=== PATIENT | male | born 1960 | race Caucasian/White ===

== ENCOUNTER 2019-09-26 14:15 | Emergency (ER) | payer OTHER, SELFPAY ==
[2019-09-26 14:50] VITALS: BP 131/84; PULSE 62; RESP 22; TEMP 36.6; O2SAT 98; BMI 27.1
--- NOTE | 2019-09-26 16:00 | ED.NAVMDI ---
HPI - Nausea/Vomiting/Diarrhea <KIMBERLY Hartman - Last Filed: 09/26/19 21:17> General Chief complaint: Nausea/Vomiting/Diarrhea Stated complaint: N/V/D Time Seen by Provider: 09/26/19 15:09 Source: patient Mode of arrival: Ambulatory Limitations: no limitations History of Present Illness HPI Narrative: 58yo male with history of seizures which are managed with Keppra (no seizures since 2004) presents to the emergency department complaining of nausea, vomiting, and diarrhea for the past 5 days. He states he was on a cruise the [facility] when he developed the symptoms. He states he last vomited last night around 5:00 p.m. and has not vomited since. However, he continues to have diarrhea and worsening abdominal cramping. Patient denies eating any other foods other than will was given to [place] on the cruise ship. He denies any blood in his stool, chest pain, shortness of breath, high fevers, dizziness, vertigo, cough, nasal congestion, or other concerns. His has been with him but has not been sick. Patient denies any abdominal surgeries. Patient states he was given a anti spasmodic and loperamide to help with symptoms, he states these have not helped. Patient states he was able to keep his Keppra down. Related Data Previous Rx's Medication Instructions Recorded ondansetron 4 mg PO Q6-8H PRN #20 tab 09/26/19 Allergies Allergy/AdvReac Type Severity Reaction Status Date / Time No Known Drug Allergies Allergy Verified 09/26/19 14:50 Review of Systems <KIMBERLY Hartman - Last Filed: 09/26/19 21:17> Review of Systems Narrative: REVIEW OF SYSTEMS: GENERAL: Denies fever, chills, malaise, or wt. loss. HENT: No head trauma, sore throat, or dysphagia. EYES: No loss of vision, double vision, eye pain, or irritation. CARDIOVASCULAR: No chest pain, palpitations, or orthopnea. RESPIRATORY: No shortness of breath or cough. GASTROINTESTINAL: Complains of diffuse abdominal cramping, see HPI. GENITOURINARY: No flank pain, urinary incontinence, or dysuria. MUSCULOSKELETAL: No pain, weakness, or trauma. INTEGUMENTARY: No rash, lesions, or pruritus. NEURO: No numbness, tingling, memory loss, confusion, or headaches. PSYCH: No behavior or mood changes. Patient History <KIMBERLY Hartman - Last Filed: 09/26/19 21:17> Medical History Seizures (Acute) Social History Smoking Status: Never smoker Smoking Status: Never smoker alcohol intake frequency: 0-2 drinks per day Substance Use Type: does not use Exam <KIMBERLY Hartman - Last Filed: 09/26/19 21:17> Initial Vital Signs Initial Vital Signs: Vital Signs Temperature 97.9 F 09/26/19 14:50 Pulse Rate 62 09/26/19 14:50 Respiratory Rate 22 09/26/19 14:50 Blood Pressure 131/84 09/26/19 14:50 Pulse Oximetry 98 09/26/19 14:50 PHYSICAL EXAMINATION: GENERAL: Well groomed, alert, and cooperative. Answers questions promptly and appropriately. Vital signs noted. HENT: Normocephalic, atraumatic. Hearing intact. Oral mucosa is pink and moist. EYES: Conjunctiva pink, sclera white, no periorbital swelling. CARDIOVASCULAR: S1 and S2 sounds normal. Regular rate and rhythm, no murmurs, clicks, or bruits. No pedal edema. RESPIRATORY: Normal respiratory rate, trachea midline, airway patent. No stridor, nasal flaring or accessory muscle use. Lungs are clear in all p[place] without wheeze, rhonchi, or crackles. GASTROINTESTINAL: Bowel sounds normoactive. Abdomen is soft with diffuse tenderness to all quadrants, no focal tenderness, tenderness completely resolved after administration of Zofran and fluids. No rebound tenderness.. No organomegaly, no palpable masses. GENITALURINARY: No flank tenderness. MUSCULOSKELETAL: Normal gait and coordination. Equal tone and mass bilaterally. EXTREMITIES: CMS intact. SKIN: Warm, dry, soft, appropriate color for ethnicity. No lesions, rashes, or wounds to visualized areas. NEURO: Alert and Oriented X 3. Good coordination. No ataxia, or sensory deficits, or cognitive issues. PSYCH: Appropriate affect and mood. <Holly Durán MD - Last Filed: 10/10/19 18:37> Initial Vital Signs Initial Vital Signs: Vital Signs Temperature 97.9 F 09/26/19 14:50 Pulse Rate 62 09/26/19 14:50 Respiratory Rate 22 09/26/19 14:50 Blood Pressure 131/84 09/26/19 14:50 Pulse Oximetry 98 09/26/19 14:50 Course <KIMBERLY Hartman - Last Filed: 09/26/19 21:17> Course Course Narrative: Patient was given IV fluids and ondansetron in the emergency department. After medications, patient states ?I feel 80 present better.Due to electrolyte abnormalities, patient was given another liter of fluid, an additional dose of ondansetron as nausea was not completely resolved, and p.o. potassium. He was given a p.o. trial with crackers and water which he was able to keep down for a few hours. Patient agreed that he was ready to go home and is feeling much better. At the dip discharge she states ?I feel 95% better ?. Patient states abdominal cramping has completely resolved. Orders Ordered: Discontinued Medications Sodium Chloride (Normal Saline 0.9%) 1,000 mls @ 1,000 mls/hr IV BOLUS ONE Stop: 09/26/19 15:55 Last Infusion: 09/26/19 17:26 Dose: 0 mls/hr Documented by: Admin: 09/26/19 16:05 Dose: 1,000 mls/hr Documented by: TAE Sodium Chloride (Normal Saline 0.9%) 1,000 mls @ 1,000 mls/hr IV BOLUS ONE Stop: 09/26/19 16:26 Last Infusion: 09/26/19 18:52 Dose: 0 mls/hr Documented by: Admin: 09/26/19 17:27 Dose: 1,000 mls/hr Documented by: LAST Ondansetron HCl (Zofran) 4 mg IV NOW ONE Stop: 09/26/19 14:57 Last Admin: 09/26/19 16:08 Dose: 4 mg Documented by: TAE Ondansetron HCl (Zofran) 4 mg IV NOW ONE Stop: 09/26/19 15:28 Last Admin: 09/26/19 17:27 Dose: 4 mg Documented by: LAST Potassium Chloride (Klor-Con M20) 40 meq PO NOW ONE Stop: 09/26/19 17:58 Last Admin: 09/26/19 18:17 Dose: 40 meq Documented by: TAE Vital Signs Vital signs: Vital Signs - 8 hr 09/26/19 14:50 09/26/19 16:51 09/26/19 17:55 Temperature 97.9 F Pulse Rate 62 67 67 Respiratory Rate 22 16 16 Blood Pressure 131/84 Blood Pressure [Right Arm] 126/75 121/67 Pulse Oximetry 98 100 100 09/26/19 19:34 Temperature Pulse Rate 62 Respiratory Rate Blood Pressure 133/69 Blood Pressure [Right Arm] Pulse Oximetry 98 <Holly Durán MD - Last Filed: 10/10/19 18:37> Orders Ordered: Discontinued Medications Sodium Chloride (Normal Saline 0.9%) 1,000 mls @ 1,000 mls/hr IV BOLUS ONE Stop: 09/26/19 15:55 Last Infusion: 09/26/19 17:26 Dose: 0 mls/hr Documented by: Admin: 09/26/19 16:05 Dose: 1,000 mls/hr Documented by: TAE Sodium Chloride (Normal Saline 0.9%) 1,000 mls @ 1,000 mls/hr IV BOLUS ONE Stop: 09/26/19 16:26 Last Infusion: 09/26/19 18:52 Dose: 0 mls/hr Documented by: Admin: 09/26/19 17:27 Dose: 1,000 mls/hr Documented by: LAST Ondansetron HCl (Zofran) 4 mg IV NOW ONE Stop: 09/26/19 14:57 Last Admin: 09/26/19 16:08 Dose: 4 mg Documented by: TAE Ondansetron HCl (Zofran) 4 mg IV NOW ONE Stop: 09/26/19 15:28 Last Admin: 09/26/19 17:27 Dose: 4 mg Documented by: LAST Potassium Chloride (Klor-Con M20) 40 meq PO NOW ONE Stop: 09/26/19 17:58 Last Admin: 09/26/19 18:17 Dose: 40 meq Documented by: TAE Vital Signs Vital signs: Vital Signs - 8 hr 09/26/19 14:50 09/26/19 16:51 09/26/19 17:55 Temperature 97.9 F Pulse Rate 62 67 67 Respiratory Rate 22 16 16 Blood Pressure 131/84 Blood Pressure [Right Arm] 126/75 121/67 Pulse Oximetry 98 100 100 09/26/19 19:34 Temperature Pulse Rate 62 Respiratory Rate Blood Pressure 133/69 Blood Pressure [Right Arm] Pulse Oximetry 98 MDM - Nausea/Vomiting/Diarrhea <Diana BarnettKIMBERLY - Last Filed: 09/26/19 21:17> Medical Records Attestation: I reviewed the patient's medical records. Lab Data Attestation: I reviewed the patient's lab results. Result diagrams: 09/26/19 16:07 09/26/19 16:07 Labs: Lab Results 09/26/19 09/26/19 09/26/19 Range/Units 16:07 16:07 16:07 WBC 4.4 L (4.5-11.0) X10^3/uL RBC 5.00 (4.5-5.9) X10^6/uL Hgb 15.8 (13.5-17.5) g/dL Hct 44.5 (41-53) % MCV 88.9 (80-100) fL MCH 31.7 (26-34) PG MCHC 35.6 (30-36) % RDW 13.2 (11.6-14.8) % Plt Count 282 (150-400) X10^3/uL Neut % (Auto) 54.5 (50-75) % Lymph % (Auto) 28.2 (25-40) % [place] % (Auto) 16.8 H (3-14) % Eos % (Auto) 0.3 L (2-4) % Baso % (Auto) 0.2 (0-2) % Neut # (Auto) 2400 (0684-0122) /uL Lymph # (Auto) 1200 (3855-8950) /uL [place] # (Auto) 700 (0-900) /uL Eos # (Auto) 0 (0-450) /uL Baso # (Auto) 0 (0-100) /uL Sodium 135 L (137-145) mmol/L Potassium 3.1 L (3.4-5.1) mmol/L Chloride 89 L (98-107) mmol/L Carbon Dioxide 33 H (22-32) mmol/L BUN 33 H (9-20) mg/dL Creatinine 0.90 (0.66-1.25) mg/dL Estimated GFR > 60.0 (>60) mL/min BUN/Creatinine Ratio 36.7 H (6-22) Glucose 111 H (70-100) mg/dL Calcium 9.4 (8.4-10.2) mg/dL Total Bilirubin 1.0 (0.2-1.3) mg/dL AST 39 (17-59) IU/L ALT 39 (<50) IU/L Alkaline Phosphatase 43 (38-126) U/L Total Protein 8.0 (6.3-8.2) g/dL Albumin 4.3 (3.5-5.0) g/dL Globulin 3.7 (1.7-4.1) g/dL Albumin/Globulin Ratio 1.2 (1.0-2.8) Lipase 107 (23-300) U/L Stl C. cayetanensis PCR (Not Detect) Stool Rotavirus (PCR) (Not Detect) Stool Adenovirus (PCR) (Not Detect) Stool Astrovirus (PCR) (Not Detect) Stool Cryptosporidium PCR (Not Detect) Stl E.coli Shiga Tox PCR (Not Detect) St Sh/Enteroin Ecoli PCR (Not Detect) Stool E coli O157 PCR Stl Enterotoxigenic E PCR (Not Detect) Stool EPEC (PCR) (Not Detect) Stl E. histolytica PCR (Not Detect) Stool Giardia Lamblia PCR (Not Detect) Stool Sapovirus (PCR) (Not Detect) Stl P. shigelloides PCR (Not Detect) St Y.enterocolitica PCR (Not Detect) Stool Vibrio (PCR) (Not Detect) Stl Vibrio cholerae PCR (Not Detect) Stl Enteroaggr Ecoli PCR (Not Detect) Stl Norovirus GI/GII PCR (Not Detect) Campylobacter (PCR) (Not Detect) C. difficile Tox (PCR) (Not Detect) Salmonella (PCR) (Not Detect) 09/26/19 Range/Units 16:43 WBC (4.5-11.0) X10^3/uL RBC (4.5-5.9) X10^6/uL Hgb (13.5-17.5) g/dL Hct (41-53) % MCV (80-100) fL MCH (26-34) PG MCHC (30-36) % RDW (11.6-14.8) % Plt Count (150-400) X10^3/uL Neut % (Auto) (50-75) % Lymph % (Auto) (25-40) % [place] % (Auto) (3-14) % Eos % (Auto) (2-4) % Baso % (Auto) (0-2) % Neut # (Auto) (9598-3241) /uL Lymph # (Auto) (8161-7941) /uL [place] # (Auto) (0-900) /uL Eos # (Auto) (0-450) /uL Baso # (Auto) (0-100) /uL Sodium (137-145) mmol/L Potassium (3.4-5.1) mmol/L Chloride (98-107) mmol/L Carbon Dioxide (22-32) mmol/L BUN (9-20) mg/dL Creatinine (0.66-1.25) mg/dL Estimated GFR (>60) mL/min BUN/Creatinine Ratio (6-22) Glucose (70-100) mg/dL Calcium (8.4-10.2) mg/dL Total Bilirubin (0.2-1.3) mg/dL AST (17-59) IU/L ALT (<50) IU/L Alkaline Phosphatase (38-126) U/L Total Protein (6.3-8.2) g/dL Albumin (3.5-5.0) g/dL Globulin (1.7-4.1) g/dL Albumin/Globulin Ratio (1.0-2.8) Lipase (23-300) U/L Stl C. cayetanensis PCR Not detected (Not Detect) Stool Rotavirus (PCR) Not detected (Not Detect) Stool Adenovirus (PCR) Not detected (Not Detect) Stool Astrovirus (PCR) Not detected (Not Detect) Stool Cryptosporidium PCR Not detected (Not Detect) Stl E.coli Shiga Tox PCR Not detected (Not Detect) St Sh/Enteroin Ecoli PCR Not detected (Not Detect) Stool E coli O157 PCR Not Reportable Stl Enterotoxigenic E PCR Not detected (Not Detect) Stool EPEC (PCR) Not detected (Not Detect) Stl E. histolytica PCR Not detected (Not Detect) Stool Giardia Lamblia PCR Not detected (Not Detect) Stool Sapovirus (PCR) Not detected (Not Detect) Stl P. shigelloides PCR Not detected (Not Detect) St Y.enterocolitica PCR Not detected (Not Detect) Stool Vibrio (PCR) Not detected (Not Detect) Stl Vibrio cholerae PCR Not detected (Not Detect) Stl Enteroaggr Ecoli PCR Not detected (Not Detect) Stl Norovirus GI/GII PCR Not detected (Not Detect) Campylobacter (PCR) Not detected (Not Detect) C. difficile Tox (PCR) Not detected (Not Detect) Salmonella (PCR) Not detected (Not Detect) Urine Dip Bedside Urine Glucose Negative Bedside Urine Bilirubin + 1 Bedside Urine Ketone +++ 80 Urine Specific [place] 1.015 Bedside Urine Occult Blood - Negative Bedside Urine pH 6.5 Bedside Urine Protein +/- 15 Bedside Urine Urobilinogen - Negative Bedside Urine Nitrite - Negative Bedside Urine Leukocytes - Negative Esterase MDM Narrative Medical decision making narrative: 58-year-old male presenting to the emergency department for continued nausea, vomiting, diarrhea for the past 5 days that started while on a cruise. Patient remained hemodynamically stable throughout the emergency department stay. His laboratory work showed minor fluctuations and electrolytes that reflected his vomiting and diarrhea. Patient was able to retain p.o. foods, pulse, and fluids. He has not vomited for approximately 24 hours, and has had 1-2 episodes in the emergency department if diarrhea. Patient reported feeling much better after administration of fluids and nausea medication. GI panel was negative for any suspicious bacteria. I suspect his symptoms are most likely caused by viral gastroenteritis, I have an increased suspicion for neuro virus due to recent cruise vacation. Less likely Campylobacter, diarrhea, E coli, or other bacterial concerns due to negative GI panel and resolution of symptoms. Less likely autoimmune such as colitis due to lack of blood in stool. Less likely acute abdominal etiology as cramping completely resolved after administration of fluids. Less likely cardiac etiology due to significant resolution of symptoms after fluid administration, lack of other symptoms such as chest pain or shortness of breath and lack of significant risk factors. Patient was encouraged to drink Gatorade and Pedialyte to help with electrolyte abnormalities. He was encouraged to present to the emergency department for any acute changes or worsening symptoms. Patient agreed to plan of care verbalized understanding. <Holly Durán MD - Last Filed: 10/10/19 18:37> Lab Data Labs: Lab Results 09/26/19 09/26/19 09/26/19 Range/Units 16:07 16:07 16:07 WBC 4.4 L (4.5-11.0) X10^3/uL RBC 5.00 (4.5-5.9) X10^6/uL Hgb 15.8 (13.5-17.5) g/dL Hct 44.5 (41-53) % MCV 88.9 (80-100) fL MCH 31.7 (26-34) PG MCHC 35.6 (30-36) % RDW 13.2 (11.6-14.8) % Plt Count 282 (150-400) X10^3/uL Neut % (Auto) 54.5 (50-75) % Lymph % (Auto) 28.2 (25-40) % [place] % (Auto) 16.8 H (3-14) % Eos % (Auto) 0.3 L (2-4) % Baso % (Auto) 0.2 (0-2) % Neut # (Auto) 2400 (0655-5616) /uL Lymph # (Auto) 1200 (0794-8979) /uL [place] # (Auto) 700 (0-900) /uL Eos # (Auto) 0 (0-450) /uL Baso # (Auto) 0 (0-100) /uL Sodium 135 L (137-145) mmol/L Potassium 3.1 L (3.4-5.1) mmol/L Chloride 89 L (98-107) mmol/L Carbon Dioxide 33 H (22-32) mmol/L BUN 33 H (9-20) mg/dL Creatinine 0.90 (0.66-1.25) mg/dL Estimated GFR > 60.0 (>60) mL/min BUN/Creatinine Ratio 36.7 H (6-22) Glucose 111 H (70-100) mg/dL Calcium 9.4 (8.4-10.2) mg/dL Total Bilirubin 1.0 (0.2-1.3) mg/dL AST 39 (17-59) IU/L ALT 39 (<50) IU/L Alkaline Phosphatase 43 (38-126) U/L Total Protein 8.0 (6.3-8.2) g/dL Albumin 4.3 (3.5-5.0) g/dL Globulin 3.7 (1.7-4.1) g/dL Albumin/Globulin Ratio 1.2 (1.0-2.8) Lipase 107 (23-300) U/L Stl C. cayetanensis PCR (Not Detect) Stool Rotavirus (PCR) (Not Detect) Stool Adenovirus (PCR) (Not Detect) Stool Astrovirus (PCR) (Not Detect) Stool Cryptosporidium PCR (Not Detect) Stl E.coli Shiga Tox PCR (Not Detect) St Sh/Enteroin Ecoli PCR (Not Detect) Stool E coli O157 PCR Stl Enterotoxigenic E PCR (Not Detect) Stool EPEC (PCR) (Not Detect) Stl E. histolytica PCR (Not Detect) Stool Giardia Lamblia PCR (Not Detect) Stool Sapovirus (PCR) (Not Detect) Stl P. shigelloides PCR (Not Detect) St Y.enterocolitica PCR (Not Detect) Stool Vibrio (PCR) (Not Detect) Stl Vibrio cholerae PCR (Not Detect) Stl Enteroaggr Ecoli PCR (Not Detect) Stl Norovirus GI/GII PCR (Not Detect) Campylobacter (PCR) (Not Detect) C. difficile Tox (PCR) (Not Detect) Salmonella (PCR) (Not Detect) 09/26/19 Range/Units 16:43 WBC (4.5-11.0) X10^3/uL RBC (4.5-5.9) X10^6/uL Hgb (13.5-17.5) g/dL Hct (41-53) % MCV (80-100) fL MCH (26-34) PG MCHC (30-36) % RDW (11.6-14.8) % Plt Count (150-400) X10^3/uL Neut % (Auto) (50-75) % Lymph % (Auto) (25-40) % [place] % (Auto) (3-14) % Eos % (Auto) (2-4) % Baso % (Auto) (0-2) % Neut # (Auto) (1948-4484) /uL Lymph # (Auto) (1960-7157) /uL [place] # (Auto) (0-900) /uL Eos # (Auto) (0-450) /uL Baso # (Auto) (0-100) /uL Sodium (137-145) mmol/L Potassium (3.4-5.1) mmol/L Chloride (98-107) mmol/L Carbon Dioxide (22-32) mmol/L BUN (9-20) mg/dL Creatinine (0.66-1.25) mg/dL Estimated GFR (>60) mL/min BUN/Creatinine Ratio (6-22) Glucose (70-100) mg/dL Calcium (8.4-10.2) mg/dL Total Bilirubin (0.2-1.3) mg/dL AST (17-59) IU/L ALT (<50) IU/L Alkaline Phosphatase (38-126) U/L Total Protein (6.3-8.2) g/dL Albumin (3.5-5.0) g/dL Globulin (1.7-4.1) g/dL Albumin/Globulin Ratio (1.0-2.8) Lipase (23-300) U/L Stl C. cayetanensis PCR Not detected (Not Detect) Stool Rotavirus (PCR) Not detected (Not Detect) Stool Adenovirus (PCR) Not detected (Not Detect) Stool Astrovirus (PCR) Not detected (Not Detect) Stool Cryptosporidium PCR Not detected (Not Detect) Stl E.coli Shiga Tox PCR Not detected (Not Detect) St Sh/Enteroin Ecoli PCR Not detected (Not Detect) Stool E coli O157 PCR Not Reportable Stl Enterotoxigenic E PCR Not detected (Not Detect) Stool EPEC (PCR) Not detected (Not Detect) Stl E. histolytica PCR Not detected (Not Detect) Stool Giardia Lamblia PCR Not detected (Not Detect) Stool Sapovirus (PCR) Not detected (Not Detect) Stl P. shigelloides PCR Not detected (Not Detect) St Y.enterocolitica PCR Not detected (Not Detect) Stool Vibrio (PCR) Not detected (Not Detect) Stl Vibrio cholerae PCR Not detected (Not Detect) Stl Enteroaggr Ecoli PCR Not detected (Not Detect) Stl Norovirus GI/GII PCR Not detected (Not Detect) Campylobacter (PCR) Not detected (Not Detect) C. difficile Tox (PCR) Not detected (Not Detect) Salmonella (PCR) Not detected (Not Detect) Urine Dip Bedside Urine Glucose Negative Bedside Urine Bilirubin + 1 Bedside Urine Ketone +++ 80 Urine Specific [place] 1.015 Bedside Urine Occult Blood - Negative Bedside Urine pH 6.5 Bedside Urine Protein +/- 15 Bedside Urine Urobilinogen - Negative Bedside Urine Nitrite - Negative Bedside Urine Leukocytes - Negative Esterase Discharge Plan Departure Patient Disposition: Home Clinical Impression: Gastroenteritis Discharge Date/Time: 09/26/19 19:34 Instructions: DI for Viral Gastroenteritis -- Adult Activity Restrictions/Additional Instructions: Thank you for entrusting me with your care today. As discussed, your laboratory work shows that your electrolytes were low and you were dehydrated. Stool sample is clear of any concerning bacteria that would require further treatment. I prescribed you a nausea medication, please take this as needed. I recommend using the brat diet (bananas, rice, apples, toast) for the next 24 hours, you can increase different foods as tolerated (please remember that foods with high fat content and dairy are the hard to digest initially). Return emergency department for any new or worsening symptoms such as severe abdominal pain, continued vomiting, blood in stool or vomit, chest pain, shortness of breath, high fevers, or other concerns. If symptoms continue, please see your primary care provider in the next week. Prescriptions: New ondansetron 4 mg tablet,disintegrating 4 mg PO Q6-8H PRN (Reason: nausea and vomiting) Qty: 20 RF: 0 Referrals: Jennifer Bergeron MD [Primary Care Provider] -
[2019-09-26] MEDS: SODIUM CHLORIDE 0.9% 1,000 ML 1000 ML IV ×2 (16:05→17:27)
[2019-09-26] MEDS: ONDANSETRON 4 MG/2 ML INJ IV ×2 (16:08→17:27)
[2019-09-26 16:35] LABS: Add Manual Diff / Slide Review NO; Basophils Absolute Auto 0 /uL (0-100); Basophils Percent Auto 0.2 % (0-2); Eosinophils Absolute Auto 0 /uL (0-450); Eosinophils Percent Auto 0.3 % (2-4); Hematocrit 44.5 % (41-53); Hemoglobin 15.8 g/dL (13.5-17.5); Lymphocytes Absolute Auto 1200 /uL (1100-4500); Lymphocytes Percent Auto 28.2 % (25-40); Mean Corpuscular HGB Conc 35.6 % (30-36); Mean Corpuscular Hemoglobin 31.7 PG (26-34); Mean Corpuscular Volume 88.9 fL (80-100); Monocytes Absolute Auto 700 /uL (0-900); Monocytes Percent Auto 16.8 % (3-14); Neutrophils Absolute Auto 2400 /uL (1500-7000); Neutrophils Percent Auto 54.5 % (50-75); Platelet Count 282 X10^3/uL (150-400); Red Cell Distribution Width 13.2 % (11.6-14.8); White Blood Cell Count 4.4 X10^3/uL (4.5-11.0)
[2019-09-26 16:47] LABS: Lipase 107 U/L (23-300)
[2019-09-26 16:49] LABS: Alanine Aminotransferase 39 IU/L (<50); Albumin 4.3 g/dL (3.5-5.0); Albumin Globulin Ratio 1.2 (1.0-2.8); Alkaline Phosphatase 43 U/L (38-126); Aspartate Aminotransferase 39 IU/L (17-59); BUN Creatinine Ratio 36.7 (6-22); Blood Urea Nitrogen 33 mg/dL (9-20); Calcium 9.4 mg/dL (8.4-10.2); Carbon Dioxide 33 mmol/L (22-32); Chloride 89 mmol/L (98-107); Estimated Glomerular Filt Rate > 60.0 mL/min (>60); Globulin 3.7 g/dL (1.7-4.1); Glucose 111 mg/dL (70-100); HEMOLYSIS < 15 (0-50); Potassium 3.1 mmol/L (3.4-5.1); Sodium 135 mmol/L (137-145)
[2019-09-26 16:51] VITALS: BP 126/75; PULSE 67; RESP 16; O2SAT 100
[2019-09-26 17:55] VITALS: BP 121/67; PULSE 67; RESP 16; O2SAT 100
[2019-09-26] MEDS: POTASSIUM CHLORIDE 20 MEQ TAB 40 MEQ PO (18:17)
[2019-09-26 18:41] LABS: Campylobacter Not Detected (Not Detect); Clostridium difficile toxin AB Not Detected (Not Detect); Plesiomonsa shigelloides Not Detected (Not Detect); Salmonella Not Detected (Not Detect); Vibrio Not Detected (Not Detect); Vibrio cholerae Not Detected (Not Detect); Yersinia enterocolitica Not Detected (Not Detect)
[2019-09-26 18:42] LABS: Adenovirus F 40/41 Not Detected (Not Detect); Astrovirus Not Detected (Not Detect); Cryptosporidium Not Detected (Not Detect); Cyclospora cayetanensis Not Detected (Not Detect); Entamoeba histolytica Not Detected (Not Detect); Enteroaggregative E.coli Not Detected (Not Detect); Enteropathogenic E.coli Not Detected (Not Detect); Enterotoxigenic E.coli It/st Not Detected (Not Detect); Giardia lamblia Not Detected (Not Detect); Norovirus GI/GII Not Detected (Not Detect); Rotavirus A Not Detected (Not Detect); Sapovirus Not Detected (Not Detect); Shiga-like toxin-prod E.coli Not Detected (Not Detect); Shigella/Enteroinvasive E.coli Not Detected (Not Detect)
[2019-09-26 19:34] VITALS: BP 133/69; PULSE 62; O2SAT 98
== END 2019-09-26 19:34 | disposition home or self-care (01) ==
PROVIDERS: Emergency Medicine; Emergency Provider Nurse Practitioner; PCP Specialist
DX: K52.9 Noninfective gastroenteritis and colitis, unspecified (principal)
CPT/HCPCS: 36415; 80053; 81003; 83690; 85025; 87507; 96361; 96374; 96376; 99284; J2405